=== PATIENT | male | born 1985 | race Caucasian/White ===

== ENCOUNTER 2016-09-06 20:33 | Emergency (ER) | payer OTHER ==
[~2016-09-06] VITALS: Wt 90.5 kg
--- NOTE | 2016-09-06 21:50 | ERA ---
ER Documentation Chief Complaint Date/Time DATE: 09/06/16 TIME: 21:48 Chief Complaint Knee injury dut to a pt getting agitated HPI This is a otherwise healthy 31-year-old male presenting with his girlfriend. 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 Patient complains of minimal swelling and pain worse with flexing the knee. Patient denies instability, fever, loss of consciousness, injury to other body parts, or opening of the skin. ROS All systems reviewed and are negative except as per history of present illness. Medications Home Meds Active Scripts Acetaminophen* (Tylenol*) 325 Mg Tablet, 1 TAB PO Q8 Y for PAIN AND OR ELEVATED TEMP, #20 TAB Prov:LYUDMILA POTTER PA-C 09/06/16 Allergies Allergies: Coded Allergies: No Known Allergy (Unverified , 09/06/16) Physical Exam Vitals Vital Signs Date Time Temp Pulse Resp B/P Pulse Ox O2 Delivery O2 Flow Rate FiO2 09/06/16 20:38 98.0 77 20 145/90 97 Physical Exam Const: Well appearing, well developed Head: Atraumatic Eyes: Normal Conjunctiva ENT: Normal External Ears, Nose and Mouth. Neck: Full range of motion..~ No meningismus. Resp: Clear to auscultation bilaterally Cardio: Regular rate and rhythm, no murmurs Abd: Soft, non tender, non distended. Normal bowel sounds Skin: No petechiae or rashes Back: No midline or flank tenderness Ext: limited right knee ROM secondary to pain. No effusion, crepitus. Negative won's sign, anterior and posterior drawer signs, no lateral or medial knee instability. Neur: Awake and alert Psych: Normal Mood and Affect Procedures/MDM Patient was worked up for right knee pain status post mechanical fall 6 hours ago. Physical exam was unremarkable. XR of the affected site was unremarkable. At this time I am unable to rule out tendon or ligamentous injuries. Thus, the pt was given recommendations to follow up with ortho and advised to follow up with their PCP in the next 1-2 days to be formally referred to, and further evaluated for soft tissue injuries , by an rn orthopedic. Pt will be discharged with an NSAID to control the pain. There is no need for stabilization with a brace or cast at this time. Patient will be discharged with crutches and Jeff wrap to assist with ambulation with advised to return to full motion and ambulation as soon as possible. Also discussed possible need for physical therapy. Vitals are stable will be discharged at this time. Departure Diagnosis: Primary Impression: Knee pain Qualified Code: M25.561 - Acute pain of right knee Additional Impression: Knee injury Qualified Code: S89.91XA - Knee injury, right, initial encounter Condition: Stable Additional Instructions: Follow up with PCP in 2-3 days for reevaluation and possible referral. LYUDMILA POTTER PA-C September 06, 2016 21:50
--- NOTE | 2016-09-06 23:03 | RADRPT ---
PROCEDURE: Left knee x-ray CLINICAL INDICATION: Right knee trauma. TECHNIQUE: AP, lateral and oblique views of the left knee were obtained. COMPARISON: None FINDINGS: There is normal mineralization. No acute fracture or dislocation is seen. There are no significant degenerative changes. There is no joint effusion. There is no significant soft tissue swelling. IMPRESSION: Normal x-ray of the left knee. RPTAT: [facility] Physician Elvin Date Time Electronically viewed and signed by Agustina Salomon Physician on 09/06/2016 23:03 RS/
[2016-09-06] MEDS ORDERED: ACET325T33 PO (23:31)
== END 2016-09-06 23:41 | disposition home or self-care (01) ==
LOC: FTE 20:33
DX: S89.91XA Unspecified injury of right lower leg, initial encounter (principal); W01.10XA Fall on same level from slipping, tripping and stumbling with subsequent striking against unspecified object, initial encounter; Y92.9 Unspecified place or not applicable
CPT/HCPCS: 73562